=== PATIENT | female | born 1970 | race Hispanic/Latino ===

== ENCOUNTER 2017-05-25 17:01 | Emergency (ER) | payer BC ==
[2017-05-25] MEDS ORDERED: ONDANSETRON HCL 4 MG/2 ML VIAL ONE (17:26)
[2017-05-25] MEDS ORDERED: KETOROLAC TROMETHAMINE 30MG/ML ONE (17:26)
[2017-05-25] MEDS ORDERED: SODIUM CHLORIDE 0.9% 1000ML 1,000 ML IV ONE (17:26)
[2017-05-25 17:40] LABS: BASOPHILS % (AUTO) 0.5 % (0.0-5.0); EOSINOPHILS % (AUTO) 1.1 % (0.0-8.0); HEMATOCRIT 32.8 % (36-48); LYMPHOCYTES % (AUTO) 18.9 % (21.0-51.0); MEAN CORPUSCULAR HEMOGLOBIN 25.5 pg (27.0-33.0); MEAN CORPUSCULAR HGB CONC 32.8 g/dL (32.0-36.0); MEAN CORPUSCULAR VOLUME 77.8 fL (79-99); MONOCYTES % (AUTO) 8.9 % (3.0-13.0); NEUTROPHILS % (AUTO) 70.6 % (40.0-77.0); PLATELET COUNT (AUTO) 240 K/uL (130-400); RED BLOOD CELL COUNT(AUTO) 4.22 MIL/uL (4.00-5.50); RED CELL DISTRIBUTION WIDTH 15.4 % (11.0-15.5); WHITE BLOOD COUNT (AUTO) 11.8 K/uL (4.8-10.8)
[2017-05-25 17:47] LABS: BILIRUBIN,URINE Moderate (NEGATIVE); COLOR,URINE Dark Yellow (YELLOW); GLUCOSE, URINE (UA) Negative (NEGATIVE); KETONES,URINE 15 mg/dL (NEGATIVE); LEUKOCYTE ESTERASE ,URINE Small (NEGATIVE); NITRATE,URINE Negative (NEGATIVE); OCCULT BLOOD,URINE Large (NEGATIVE); PROTEIN,URINE POS 1+ (NEGATIVE)
[2017-05-25 17:50] LABS: CREATININE 0.7 mg/dL (0.5-1.5); POTASSIUM 3.6 mmol/L (3.5-5.1)
[2017-05-25 17:52] LABS: APPEARANCE,URINE SLIGHTLY CLOUDY (CLEAR)
[2017-05-25 17:54] LABS: ALBUMIN 3.6 g/dL (3.5-5.0); TOTAL PROTEIN, SERUM 7.8 g/dL (6.0-8.3)
[2017-05-25 18:10] LABS: BACTERIA,URINE Rare /HPF (None Seen)
[2017-05-25 18:11] LABS: MUCUS,URINE Rare LPF (None Seen); SQUAMOUS EPITHELIAL CELL,UR Few /LPF (0-2)
[2017-05-25] MEDS ORDERED: IOPAMIDOL-370 75 ML VIAL IV ONE (18:12)
== END 2017-05-25 20:26 | disposition home or self-care (01) ==
LOC: EDH 17:01
DX: K65.1 Peritoneal abscess (principal); Z90.710 Acquired absence of both cervix and uterus
CPT/HCPCS: 36415; 74177; 80053; 81001; 85025; 96361; 96374; 96375; 99285; J1885; J2405; J7030; Q9967

== ENCOUNTER → 2017-05-31 | Outpatient (CLI) | payer BC ==
[~2017-05-31] MED LIST: IOPAMIDOL-370 75 ML VIAL IV ONE
== END | disposition home or self-care (01) ==
LOC: RAH 09:53
PROVIDERS: ATTEND Specialist
DX: K65.1 Peritoneal abscess (principal); Z98.890 Other specified postprocedural states; Z90.710 Acquired absence of both cervix and uterus
CPT/HCPCS: 72194; Q9967

== ENCOUNTER → 2017-06-28 | Outpatient (CLI) | payer BC | LOC: RAH 13:05 | PROVIDERS: ATTEND Obstetrics & Gynecology | DX: Z98.890 Other specified postprocedural states (principal); L02.91 Cutaneous abscess, unspecified | CPT/HCPCS: 76856 ==

== ENCOUNTER → 2018-11-28 | Outpatient (CLI) | payer BC | END | disposition home or self-care (01) | LOC: OIH 12:56 | PROVIDERS: ATTEND Internal Medicine | DX: J18.0 Bronchopneumonia, unspecified organism (principal) | CPT/HCPCS: 71046 ==

== ENCOUNTER → 2019-03-20 | Outpatient (CLI) | payer BC | END | disposition home or self-care (01) | LOC: OIH 15:25 | PROVIDERS: ATTEND Internal Medicine | DX: M77.32 Calcaneal spur, left foot (principal) | CPT/HCPCS: 73620 ==

== ENCOUNTER → 2019-11-18 | Outpatient (CLI) | payer BC | END | disposition home or self-care (01) | LOC: RAH 14:30 | PROVIDERS: ATTEND Internal Medicine | DX: Z90.49 Acquired absence of other specified parts of digestive tract (principal); M54.16 Radiculopathy, lumbar region | CPT/HCPCS: 72082; 72100 ==